=== PATIENT | male | born 1970 | race Two or more races ===

== ENCOUNTER 2022-10-29 05:32 | Day surgery (SDC) | payer OTHER ==
[~2022-10-29] VITALS: Ht 182.9 cm; Wt 117.9 kg
[~2022-10-29 05:32] MED LIST: ZESTRIL20 MG PO
[2022-10-29] MEDS ORDERED: POLY119PG PO (12:45)
[2022-10-29] MEDS ORDERED: PERCOCET 5-3251 EACH PO (12:45)
== END 2022-10-29 14:25 | disposition home or self-care (01) ==
LOC: CIR.AMB 05:32 → SURH 08:15 → CIR.AMB 08:15 → EDSTATUS 08:15 → CIR.AMB 14:25
PROVIDERS: ATTEND Surgery
DX: K56.690 Other partial intestinal obstruction (principal); Z20.822 Contact with and (suspected) exposure to COVID-19; I10 Essential (primary) hypertension